=== PATIENT | female | born 1970 ===

== ENCOUNTER → 2021-01-08 06:43 | Outpatient (CLI) | payer OTHER ==
[~2021-01-08 06:43] MED LIST: CRESTOR10 MG PO; FLUOROMETHOLONE5 ML; INTEGRA PLUS C1 EACH PO; LEVO-T50 MCG PO; LOPRESSOR25 MG; PERCOCET 5-3251 EACH PO; TOPROL XL25 M1 PO
== END | disposition home or self-care (01) ==
LOC: LAB 06:43
PROVIDERS: ATTEND Surgery
DX: Z20.828 Contact with and (suspected) exposure to other viral communicable diseases (principal)

== ENCOUNTER 2021-01-08 06:55 | Day surgery (SDC) | payer OTHER ==
[~2021-01-08] VITALS: Ht 152.4 cm; Wt 43.5 kg
[~2021-01-08 06:55] MED LIST changes: -FLUOROMETHOLONE5 ML; -LOPRESSOR25 MG; -PERCOCET 5-3251 EACH PO
[2021-01-09] MEDS ORDERED: FLUOROMETHOLONE5 ML (08:51)
[2021-01-09] MEDS ORDERED: LOPRESSOR25 MG (08:51)
[2021-01-09] MEDS ORDERED: PERCOCET 5-3251 EACH PO ×2 (11:55)
== END 2021-01-09 15:24 | disposition home or self-care (01) ==
LOC: CIR.AMB 06:55 → O/R 17:39 → CIR.AMB 17:39 → O/R 21:04 → SURH 21:04 → CIR.AMB 01-09 15:24
PROVIDERS: ATTEND Surgery
PROC: 06BY4ZC Excision of Hemorrhoidal Plexus, Percutaneous Endoscopic Approach (ICD-10-PCS; principal; 2021-01-08 11:30)
DX: K64.2 Third degree hemorrhoids (principal); K62.5 Hemorrhage of anus and rectum; K62.89 Other specified diseases of anus and rectum; Z20.822 Contact with and (suspected) exposure to COVID-19